=== PATIENT | female | born 1955 | race Caucasian/White ===

== ENCOUNTER 2016-08-17 15:47 | Emergency (ER) | payer OTHER ==
[2016-08-17 18:21] LABS: BUN/CREATININE RATIO 16 (0-10)
[2016-08-17 18:22] LABS: HEMOGLOBIN 14.1 gm/dl (12.3-15.3); RED BLOOD COUNT 4.92 M/UL (4.00-5.10); WHITE BLOOD COUNT 10.4 K/UL (4.5-11.0)
== END 2016-08-17 23:30 ==
LOC: ER1 15:47
PROVIDERS: Family Medicine
DX: I63.9 Cerebral infarction, unspecified (principal); R47.01 Aphasia; I10 Essential (primary) hypertension; E11.65 Type 2 diabetes mellitus with hyperglycemia; F41.9 Anxiety disorder, unspecified; E11.40 Type 2 diabetes mellitus with diabetic neuropathy, unspecified; Z79.84 Long term (current) use of oral hypoglycemic drugs; Z79.82 Long term (current) use of aspirin; Z79.899 Other long term (current) drug therapy
CPT/HCPCS: 36415; 70450; 71010; 80053; 82550; 82553; 83874; 84484; 85025; 93005; 96374; 99285; J2405

== ENCOUNTER → 2016-08-29 | Outpatient (CLI) | payer OTHER | LOC: KOH-I 15:27 | DX: M54.5 Low back pain (principal) | CPT/HCPCS: 72110 ==

== ENCOUNTER 2016-08-31 21:41 | Emergency (ER) | payer OTHER | END 2016-08-31 23:55 | disposition left against medical advice (07) | LOC: ER1 21:41 | DX: Z53.21 Procedure and treatment not carried out due to patient leaving prior to being seen by health care provider (principal) | CPT/HCPCS: 82962 ==

== ENCOUNTER → 2016-10-08 | Outpatient (CLI) | payer OTHER | LOC: EMI 17:15 | DX: M54.5 Low back pain (principal); M51.36 Other intervertebral disc degeneration, lumbar region; M51.37 Other intervertebral disc degeneration, lumbosacral region | CPT/HCPCS: 72148 ==